=== PATIENT | male | born 2005 | race African-American/Black ===

== ENCOUNTER 2024-06-30 21:08 | Emergency (ER) | payer MEDICAID ==
[~2024-06-30] VITALS: Ht 175.3 cm; Wt 72.6 kg
[2024-06-30 21:31] VITALS: O2SAT 97
[2024-06-30 21:40] VITALS: BP 108/68; PULSE 78; RESP 18; TEMP 98.6; O2SAT 100
== END 2024-07-01 02:30 | disposition home or self-care (01) ==
LOC: ER 21:08
DX: R51.9 Headache, unspecified (principal); R55 Syncope and collapse
CPT/HCPCS: 99284